=== PATIENT | female | born 1950 | race Caucasian/White ===

== ENCOUNTER 2018-05-12 14:38 | Emergency (ER) | payer MEDICARE, OTHER ==
[~2018-05-12] VITALS: Ht 160 cm; Wt 97.1 kg
[~2018-05-12 14:38] MED LIST: HYDROCHLOROTHIAZIDE; LISINOPRIL-? DOSE; PHENA200 PO; SULTRIDS PO
[2018-05-12 15:38] LABS: BASOPHILS ABSOLUTE AUTO 0.02 K/mm3 (0.00-0.23); BASOPHILS PERCENT AUTO 0 % (0-2); EOSINOPHILS ABSOLUTE AUTO 0.08 K/mm3 (0.00-0.68); EOSINOPHILS PERCENT AUTO 1 % (0-6); Hematocrit 40.7 % (33.0-51.0); Hemoglobin 13.5 g/dL (11.5-16.0); IMMATURE GRAN ABSOLUTE AUTO 0.02 K/mm3 (0.00-0.10); IMMATURE GRAN PERCENT AUTO 0 % (0-1); LYMPHOCYTES ABSOLUTE AUTO 1.72 K/mm3 (0.84-5.20); LYMPHOCYTES PERCENT AUTO 18 % (21-46); MONOCYTES ABSOLUTE AUTO 0.46 K/mm3 (0.16-1.47); MONOCYTES PERCENT AUTO 5 % (4-13); Mean Corpuscular HGB 29.9 pg (26.0-34.0); Mean Corpuscular HGB Conc 33.2 g/dL (31.5-36.5); Mean Corpuscular Volume 90 fL (80-100); Mean Platelet Volume 9.5 fL (9.1-12.4); NEUTROPHILS ABSOLUTE AUTO 7.22 K/mm3 (1.96-9.15); NEUTROPHILS PERCENT AUTO 76 % (41-73); Platelet Count 266 K/mm3 (150-400); RDW Coefficient Variation 12.5 % (11.7-14.2); RDW Standard Deviation 40.9 fL (35.1-46.3); Red Blood Cell Count 4.52 M/mm3 (3.80-5.20); White Blood Cell Count 9.52 K/mm3 (4.00-11.30)
[2018-05-12 15:55] LABS: Anion Gap 9 mmol/L (6-16); Blood Urea Nitrogen 17 mg/dL (8-24); Bun/Creatinine Ratio 23.5 (12.0-20.0); CO2, Blood 25 mmol/L (21-32); Calcium, Blood 9.2 mg/dL (8.5-10.1); Chloride, Blood 105 mmol/L (98-108); Creatinine, Blood 0.72 mg/dL (0.40-1.00); Glomerular Filtration Rate >60 (60-); Glucose, Blood 95 mg/dL (70-99); Sodium, Blood 139 mmol/L (136-145)
[2018-05-12] MEDS ORDERED: Percocet 5-3251 EACH PO (16:15)
== END 2018-05-12 16:39 | disposition home or self-care (01) ==
LOC: ER 14:38
PROVIDERS: Emergency Medicine
DX: S52.612A Displaced fracture of left ulna styloid process, initial encounter for closed fracture (principal); S52.502A Unspecified fracture of the lower end of left radius, initial encounter for closed fracture; I10 Essential (primary) hypertension; Z79.899 Other long term (current) drug therapy; W01.0XXA Fall on same level from slipping, tripping and stumbling without subsequent striking against object, initial encounter
CPT/HCPCS: 25605; 73100; 80048; 85025; 99152; 99283-25; J7030

== ENCOUNTER 2018-05-19 06:46 | Day surgery (SDC) | payer MEDICARE, OTHER ==
[~2018-05-19] VITALS: Ht 160 cm; Wt 95.7 kg
[~2018-05-19 06:46] MED LIST changes: +Percocet 5-3251 EACH PO
[2018-05-19] MEDS ORDERED: PRAV20 PO (07:48)
[2018-05-19] MEDS ORDERED: ZESTORETIC 20-121 EA (07:48)
== END 2018-05-19 11:10 | disposition home or self-care (01) ==
LOC: ORSCSDS 06:46
PROVIDERS: Orthopaedic Surgery
PROC: 0PSJ04Z Reposition Left Radius with Internal Fixation Device, Open Approach (ICD-10-PCS; principal; 2018-05-19 08:00)
DX: S52.502A Unspecified fracture of the lower end of left radius, initial encounter for closed fracture (principal); S52.602A Unspecified fracture of lower end of left ulna, initial encounter for closed fracture; I10 Essential (primary) hypertension; E66.01 Morbid (severe) obesity due to excess calories; Z68.36 Body mass index [BMI] 36.0-36.9, adult; Z79.899 Other long term (current) drug therapy
CPT/HCPCS: C1713; J0690; J2250; J2370; J2795; J3010; J7120

== ENCOUNTER → 2019-09-21 | Outpatient (CLI) | payer MEDICARE, OTHER ==
[~2019-09-21] MED LIST changes: +PRAV20 PO; +ZESTORETIC 20-121 EA
== END ==
LOC: LAB SHORT 17:53 → LAB 17:53
DX: R50.9 Fever, unspecified (principal); R35.0 Frequency of micturition
CPT/HCPCS: 87077; 87086; 87186

== ENCOUNTER 2021-12-11 11:40 | Day surgery (SDC) | payer MEDICARE, OTHER ==
[~2021-12-11] VITALS: Ht 162.6 cm; Wt 94.7 kg
[~2021-12-11 11:40] MED LIST changes: +MOBIC15 MG PO; +SERT25 PO
== END 2021-12-11 14:04 | disposition home or self-care (01) ==
LOC: ORSCSDS 11:40
PROVIDERS: Surgery
PROC: 0DJD8ZZ Inspection of Lower Intestinal Tract, Via Natural or Artificial Opening Endoscopic (ICD-10-PCS; principal; 2021-12-11 13:00)
DX: Z12.11 Encounter for screening for malignant neoplasm of colon (principal); K57.30 Diverticulosis of large intestine without perforation or abscess without bleeding; K64.8 Other hemorrhoids; I10 Essential (primary) hypertension; E78.5 Hyperlipidemia, unspecified; E66.9 Obesity, unspecified; Z68.37 Body mass index [BMI] 37.0-37.9, adult; Z79.899 Other long term (current) drug therapy
CPT/HCPCS: J0330; J0461; J2405; J2704; J7120

== ENCOUNTER → 2022-02-21 | Outpatient (CLI) | payer MEDICARE, OTHER | END | disposition home or self-care (01) | LOC: LAB SHORT 09:00 → LAB 09:00 | DX: L01.09 Other impetigo (principal) | CPT/HCPCS: 87070; 87205 ==

== ENCOUNTER 2025-01-18 08:54 | Day surgery (SDC) | payer MEDICARE, OTHER ==
[~2025-01-18] VITALS: Ht 160 cm; Wt 79.5 kg
[2025-01-18] VITALS (15 sets, daily range): BP systolic 78–118; BP diastolic 48–69
[~2025-01-18 08:54] MED LIST changes: +C COMPLEX1000 M1 PO; +ELDERBERRY350 MG PO; +FISH OIL PO; +MAGCHL64ER PO; +MOUNJARO2.5 MG/0.5 SC; +POLY500 PO; +TRAM50 PO; +Vitamin D1000 UNI1 PO; -ZESTORETIC 20-121 EA; +ZESTORETIC 20-121 EA PO
[2025-01-18] MEDS ORDERED: Lactated Ringer's 1,000 ML IV SCH ×2 (09:10→10:05)
[2025-01-18] MEDS ORDERED: Chlorhexidine Mouth Care 15 ML UDC MT SCH (09:10)
[2025-01-18] MEDS ORDERED: CeFAZolin Sodium 2,000 MG in NS 100 ML IV SCH ×2 (09:10→19:00)
[2025-01-18] MEDS ORDERED: OxyCODONE HCL 10 MG TABCR PO SCH (09:10)
[2025-01-18] MEDS ORDERED: Acetaminophen 500 MG Tab PO SCH ×2 (09:10→16:00)
[2025-01-18] MEDS ORDERED: Ropivacaine 0.5% HCl/Pf 123.125 MG,EPINEPHrine HCL 0.25 MG,Ketorolac Tromethamine 15 MG... INFIL SCH (09:10)
[2025-01-18] MEDS ORDERED: Tranexamic Acid 100 ML IV SCH (09:15)
[2025-01-18] MEDS ORDERED: LISI10 PO (09:17)
[2025-01-18] MEDS ORDERED: propofoL 0 ML IV ONE (09:39)
[2025-01-18] MEDS ORDERED: FentaNYL Citrate 50 MCG/ML 2 ML Injection ONE ×2 (09:39→10:24)
[2025-01-18] MEDS ORDERED: HYDROmorphone HCl/Pf 1MG SYR IV PRN ×3 (09:50→12:40)
[2025-01-18] MEDS ORDERED: OxyCODONE HCL 5 MG TAB PO PRN ×2 (09:55)
[2025-01-18] MEDS ORDERED: Bisacodyl 10 MG Supp PR PRN (10:00)
[2025-01-18] MEDS ORDERED: Promethazine HCl 25 MG Tab PO PRN (10:05)
[2025-01-18] MEDS ORDERED: Magnesium Hydroxide Conc 10 ML UDC PO PRN (10:05)
[2025-01-18] MEDS ORDERED: Ondansetron HCl 2 MG / ML 2ML Vial IV PRN ×2 (10:05→12:45)
[2025-01-18] MEDS ORDERED: Metoclopramide HCl 5MG / ML 2ML Vial IV PRN (10:05)
[2025-01-18] MEDS ORDERED: DiphenhydrAMINE HCL 25 MG Cap PO PRN (10:05)
[2025-01-18] MEDS ORDERED: Ondansetron HCl 2 MG / ML 2ML Vial ONE (10:24)
[2025-01-18] MEDS ORDERED: Dexamethasone Sod Phos 10 MG/ML 1ML VIAL ONE (10:24)
[2025-01-18] MEDS ORDERED: Midazolam HCl 1MG / ML 2ML Vial ONE (10:24)
[2025-01-18] MEDS ORDERED: propofoL 60 ML IV ONE (10:24)
[2025-01-18] MEDS ORDERED: Phenylephrine HCl 100 MCG/ML-NS 10MLSYR (1MG/10ML) ONE (11:23)
[2025-01-18] MEDS ORDERED: Ketorolac Tromethamine 15mg Vial IV SCH (12:00)
[2025-01-18] MEDS ORDERED: FentaNYL Citrate 50 MCG/ML 2 ML Injection IV PRN ×2 (12:40→12:45)
[2025-01-18] MEDS ORDERED: ePHEDrine Sulfate 50 MG/ML 1ML Injection IV PRN (12:45)
[2025-01-18] MEDS ORDERED: ePHEDrine Sulfate 50 MG/ML 1ML Injection ONE (13:00)
[2025-01-18] MEDS ORDERED: HYDROmorphone HCl/Pf 1MG SYR ONE (13:16)
[2025-01-18] MEDS ORDERED: Tranexamic Acid 100 ML IV ONE (13:38)
--- NOTE | 2025-01-18 18:35 | NUR ---
SHIFT SUMMARY POD0 L TKA, A/OX4, VSS, TOLERATING PO, PAIN WELL MANAGED THOUGH SHE HAS ONLY REPORTED THIS TO BE A DULL ACHE AT MOST TODAY, WORKED WITH THERAPY BUT WAS UNABLE TO GET OUT OF BED R/T HER SPINAL AND LOW BP. SHE WAS HYPOTENSIVE IN PACU AND CONTINUED TO BE OUT ON THE FLOOR, FLUIDS STARTED WHICH HELPED BRING HER SYSTOLIC UP TO LOW 100'S. NO OTHER EVENTS, CALL LIGHT IN REACH.
[2025-01-18] MEDS ORDERED: Docusate Sodium 100 MG Cap PO SCH (21:00)
[2025-01-18] MEDS ORDERED: Pravastatin Sodium 20 MG Tab PO SCH (21:00)
--- NOTE | 2025-01-18 23:51 | NUR ---
REPORT TAKEN FROM BELKIS WALLACE TO ASSUME CARE OF PT AT THIS TIME. PT RESTING IN BED WITH EYES CLOSED, CHEST RISES AND FALLS. CALL LIGHT WITHIN REACH.
--- NOTE | 2025-01-18 23:59 | NUR ---
REPORT GIVEN TO RASHID ODONNELL RN TO ASSUME CARE OF PT.
[2025-01-19 00:22] VITALS: BP 113/66
[2025-01-19 04:48] LABS: BASOPHILS ABSOLUTE AUTO 0.01 K/mm3 (0.00-0.23); BASOPHILS PERCENT AUTO 0 % (0-2); EOSINOPHILS PERCENT AUTO 0 % (0-6); Hematocrit 31.8 % (33.0-51.0); Hemoglobin 11.1 g/dL (11.5-16.0); IMMATURE GRAN ABSOLUTE AUTO 0.09 K/mm3 (0.00-0.10); IMMATURE GRAN PERCENT AUTO 1 % (0-1); LYMPHOCYTES ABSOLUTE AUTO 1.16 K/mm3 (0.84-5.20); LYMPHOCYTES PERCENT AUTO 7 % (21-46); MONOCYTES ABSOLUTE AUTO 0.69 K/mm3 (0.16-1.47); MONOCYTES PERCENT AUTO 4 % (4-13); Mean Corpuscular HGB Conc 34.9 g/dL (31.5-36.5); Mean Corpuscular Volume 92 fL (80-100); Mean Platelet Volume 9.1 fL (9.1-12.4); NEUTROPHILS ABSOLUTE AUTO 13.77 K/mm3 (1.96-9.15); NEUTROPHILS PERCENT AUTO 88 % (41-73); Platelet Count 260 K/mm3 (150-400); RDW Coefficient Variation 12.4 % (11.7-14.2); RDW Standard Deviation 41.9 fL (35.1-46.3); Red Blood Cell Count 3.47 M/mm3 (3.80-5.20); White Blood Cell Count 15.72 K/mm3 (4.00-11.30)
--- NOTE | 2025-01-19 05:23 | NUR ---
SHIFT SUMMARY PT POD 0 LEFT TOTAL KNEE. THIS RN ASSUMED CARE OF PT FROM BELKIS WALLACE JUST SHORTLY BEFORE MIDNIGHT. PAIN HAS BEEN MANAGED WITH MEDS PER EMAR. PT HAS BEEN UP AND AMBULATING, VOIDING AND TOLERATING PO INTAKE. ANTIBIOTICS INFUSED, SURGICAL SITE WNL. PLAN IS FOR DISCHARGE TODAY. BED IN LOWEST POSITION, CALL LIGHT WITHIN REACH.
[2025-01-19 05:28] LABS: Bun/Creatinine Ratio 24.4 (12.0-20.0); Calcium, Blood 8.7 mg/dL (8.5-10.1); Creatinine, Blood 0.66 mg/dL (0.40-1.00); Potassium, Blood 4.5 mmol/L (3.5-5.5)
[2025-01-19 07:06] VITALS: BP 115/66
[2025-01-19] MEDS ORDERED: ASPI81CH PO (08:13)
[2025-01-19] MEDS ORDERED: Cholecalciferol 400 unit Tab PO SCH (09:00)
[2025-01-19] MEDS ORDERED: Magnesium Oxide 400 MG Tab PO SCH (09:00)
[2025-01-19] MEDS ORDERED: HydroCHLOROthiazide 25 mg Tab PO SCH (09:00)
[2025-01-19] MEDS ORDERED: Calcium Polycarbophil 625 MG Tab PO SCH (09:00)
[2025-01-19] MEDS ORDERED: Lisinopril 10 MG Tab PO SCH (09:00)
[2025-01-19] MEDS ORDERED: Ascorbic Acid 500 MG Tab PO SCH (09:00)
[2025-01-19] MEDS ORDERED: Aspirin 81 MG Chew PO SCH (09:00)
[2025-01-19 09:43] VITALS: BP 128/70
--- NOTE | 2025-01-19 10:20 | NUR ---
discharging REVIEWED DC INSTRUCTIONS W/PT; VERBALIZED UNDERSTANDING. PROVIDED AQUACEL DRESSINGS. IV DC'D. PATIENT PACKED UP AND AWAITING RIDE.
--- NOTE | 2025-01-19 10:23 | NUR ---
DISCHARGED PT LEFT UNIT IN WC W/POSSESSIONS, DC PAPERWORK AND POLAR PACK, ACCOMPANIED BY DAVE.
[2025-01-20] MEDS ORDERED: LISI10 PO (01:36)
[2025-01-22] MEDS ORDERED: MOUNJARO SC SCH (09:00)
== END 2025-01-19 10:20 | disposition home or self-care (01) ==
LOC: ORSCMMR 08:54 → ORD 10:00 → ORSCMMR 13:37 → SURS 13:37 → ORSCMMR 01-19 10:20
PROVIDERS: Orthopaedic Surgery
PROC: 0SRD0JA Replacement of Left Knee Joint with Synthetic Substitute, Uncemented, Open Approach (ICD-10-PCS; principal; 2025-01-18 10:00)
PROC: 8E0Y0CZ Robotic Assisted Procedure of Lower Extremity, Open Approach (ICD-10-PCS; principal; 2025-01-18 10:00)
DX: M17.12 Unilateral primary osteoarthritis, left knee (principal); I10 Essential (primary) hypertension; E78.5 Hyperlipidemia, unspecified; Z79.899 Other long term (current) drug therapy
CPT/HCPCS: 36415; 73560-LT; 80048; 85025; 97110; 97116; 97162; 97530; A9270; C1713; C1776; J0171; J0690; J0735; J1100; J1171; J1885; J2250; J2371; J2405; J2704; J2795; J3010; J7120

== ENCOUNTER 2025-01-19 21:31 | Emergency (ER) | payer MEDICARE, OTHER ==
[~2025-01-19] VITALS: Ht 160 cm; Wt 77.1 kg
[~2025-01-19 21:31] MED LIST changes: +ASPI81CH PO; +LISI10 PO
[2025-01-19] MEDS ORDERED: Ondansetron HCl 2 MG / ML 2ML Vial IV ONE (21:40)
[2025-01-19 22:43] LABS: Albumin, Blood 2.8 g/dL (3.4-5.0); Albumin/Globulin Ratio 0.9 (0.8-1.8); Bilirubin, Total 0.4 mg/dL (0.1-1.0); Bun/Creatinine Ratio 28.4 (12.0-20.0); Calcium, Blood 8.6 mg/dL (8.5-10.1); Creatinine, Blood 0.63 mg/dL (0.40-1.00); Globulin, Blood 3.1 g/dL (2.2-4.0); Potassium, Blood 4.6 mmol/L (3.5-5.5); Total Protein, Blood 5.9 g/dL (6.4-8.2)
[2025-01-19 23:10] LABS: BASOPHILS ABSOLUTE AUTO 0.02 K/mm3 (0.00-0.23); BASOPHILS PERCENT AUTO 0 % (0-2); EOSINOPHILS ABSOLUTE AUTO 0.03 K/mm3 (0.00-0.68); EOSINOPHILS PERCENT AUTO 0 % (0-6); Hematocrit 34.6 % (33.0-51.0); Hemoglobin 11.6 g/dL (11.5-16.0); IMMATURE GRAN ABSOLUTE AUTO 0.08 K/mm3 (0.00-0.10); IMMATURE GRAN PERCENT AUTO 1 % (0-1); LYMPHOCYTES ABSOLUTE AUTO 2.16 K/mm3 (0.84-5.20); LYMPHOCYTES PERCENT AUTO 15 % (21-46); MONOCYTES PERCENT AUTO 7 % (4-13); Mean Corpuscular HGB 31.5 pg (26.0-34.0); Mean Corpuscular HGB Conc 33.5 g/dL (31.5-36.5); Mean Corpuscular Volume 94 fL (80-100); Mean Platelet Volume 9.3 fL (9.1-12.4); NEUTROPHILS ABSOLUTE AUTO 11.22 K/mm3 (1.96-9.15); NEUTROPHILS PERCENT AUTO 77 % (41-73); Platelet Count 243 K/mm3 (150-400); RDW Coefficient Variation 12.6 % (11.7-14.2); RDW Standard Deviation 43.6 fL (35.1-46.3); Red Blood Cell Count 3.68 M/mm3 (3.80-5.20); White Blood Cell Count 14.51 K/mm3 (4.00-11.30)
[2025-01-19 23:52] LABS: Magnesium, Blood 1.7 mg/dL (1.6-2.4); Phosphorus, Blood 3.3 mg/dL (2.5-4.9)
[2025-01-20 00:12] LABS: Source, Urine Clean Catch
[2025-01-20 00:35] LABS: Bilirubin, Urine Neg (Neg); Blood, Urine Neg (Neg); Glucose Qualitative, Urine Neg (Neg); Ketones, Urine Neg (Neg); Leukocyte Esterase, Urine Neg (Neg); Nitrite, Urine Neg (Neg); Protein, Urine Neg (Neg); Specific Gravity, Urine 1.015 (1.003-1.022); Urobilinogen, Urine NORM (Normal)
[2025-01-20 00:47] LABS: Appearance, Urine Clear (Clear); Color, Urine Yellow (P-Yellow)
[2025-01-20] MEDS ORDERED: Ondansetron HCl 2 MG / ML 2ML Vial IV ONE (00:55)
[2025-01-20 01:15] VITALS: BP 110/54
[2025-01-20] MEDS ORDERED: LISI10 PO (01:36)
== END 2025-01-20 01:45 | disposition home or self-care (01) ==
LOC: ER 21:31
PROVIDERS: Emergency Medicine; Student in an Organized Health Care Education/Training Program
DX: R55 Syncope and collapse (principal); D72.829 Elevated white blood cell count, unspecified; Z59.89 Other problems related to housing and economic circumstances; I10 Essential (primary) hypertension; Z79.899 Other long term (current) drug therapy; Z79.890 Hormone replacement therapy; Z79.51 Long term (current) use of inhaled steroids; Z79.52 Long term (current) use of systemic steroids; Z79.83 Long term (current) use of bisphosphonates; Z79.1 Long term (current) use of non-steroidal anti-inflammatories (NSAID); Z79.02 Long term (current) use of antithrombotics/antiplatelets
CPT/HCPCS: 80053; 81003; 83735; 84100; 85025; 93005; 93010; 96374; 96376; 99284-25; J2405

== ENCOUNTER 2025-05-03 08:49 | Day surgery (SDC) | payer MEDICARE, OTHER ==
[2025-04-12 14:21] VITALS: BP 132/84
[~2025-05-03] VITALS: Ht 160 cm; Wt 81.4 kg
[2025-05-03] VITALS (14 sets, daily range): BP systolic 125–151; BP diastolic 58–79
[~2025-05-03 08:49] MED LIST changes: +FISH OIL 1,0001 EA10 PO; +MUPIROCIN1 G1
[2025-05-03] MEDS ORDERED: CeFAZolin Sodium 2,000 MG in NS 100 ML IV SCH ×2 (09:10→20:00)
[2025-05-03] MEDS ORDERED: Ropivacaine 0.5% HCl/Pf 123.125 MG,EPINEPHrine HCL 0.25 MG,Ketorolac Tromethamine 15 MG... INFIL SCH (09:10)
[2025-05-03] MEDS ORDERED: Chlorhexidine Mouth Care 15 ML UDC MT SCH (09:10)
[2025-05-03] MEDS ORDERED: Tranexamic Acid 100 ML IV SCH (09:10)
--- NOTE | 2025-05-03 10:30 | NUR ---
Ambulatory in Day Surgery WITH STEADY GAIT. History, Chart, Medications and Allergies reviewed before start of procedure. Pre-Op teaching done. Pt verbalizes understanding. Patient States Post-Procedure ride home has been arranged WITH SISTER. STERLING PERERA AND ANESTHESIA PROVIDER NOTIFIED OF PT REPORTING TAKING BABY ASA AND MELOICAM DAILY, OKAY TO PROCEDE PER BOTH. PT CELL PHONE GIVEN TO SISTER IN PRE OP AREA. GLASSES TAKEN TO PACU WITH PT BLUE LINE OPERATOR BAG. ALL OTHER BELONGINGS PLACED UNDER GURN IN PT BELONGING BAG. JYB ATTEMPTED IV IN R HAND AND LFA. BOTH VEINS BLEW. ERF ATTEMPTED IN LFA. VEIN BLEW. 4TH ATTEMPT IN SHARON BY ERF SUCCESFUL.
[2025-05-03] MEDS ORDERED: Ondansetron HCl 2 MG / ML 2ML Vial IV PRN (10:55)
[2025-05-03] MEDS ORDERED: Magnesium Hydroxide Conc 10 ML UDC PO PRN (11:05)
[2025-05-03] MEDS ORDERED: Metoclopramide HCl 5MG / ML 2ML Vial IV PRN (11:05)
[2025-05-03] MEDS ORDERED: HYDROmorphone HCl/Pf 1MG SYR IV PRN ×2 (11:05→12:20)
[2025-05-03] MEDS ORDERED: FentaNYL Citrate 50 MCG/ML 2 ML Injection ONE (11:28)
[2025-05-03] MEDS ORDERED: Rocuronium Bromide 10 MG/ML 5ML Injection IV ONE (11:51)
[2025-05-03] MEDS ORDERED: Dexamethasone Sod Phos 10 MG/ML 1ML VIAL ONE (12:03)
[2025-05-03] MEDS ORDERED: Ketorolac Tromethamine 30mg Vial ONE (12:03)
[2025-05-03] MEDS ORDERED: Ondansetron HCl 2 MG / ML 2ML Vial ONE (12:03)
[2025-05-03] MEDS ORDERED: FentaNYL Citrate 50 MCG/ML 2 ML Injection IV PRN (12:20)
[2025-05-03] MEDS ORDERED: Prochlorperazine Edisylate 10 mg Vial IV PRN (12:20)
[2025-05-03] MEDS ORDERED: Albuterol 2.5 MG/3 ML VIAL INH PRN (12:20)
[2025-05-03] MEDS ORDERED: HYDROmorphone HCl/Pf 1MG SYR ONE (12:41)
[2025-05-03] MEDS ORDERED: Sugammadex Sodium 200 MG/2ML SDV (100 MG/ML) ONE (13:12)
--- NOTE | 2025-05-03 14:37 | NUR ---
POST OP ARRIVAL TO SURGICAL UNIT VIA HOSPITAL BED. DROWSY BUT OPENS EYES WHEN ASKED TO & SOFTLY ANSWERS ?s. DENIES PAIN. ASSESSMENT CHARTED. DENIES N/V SO SNACKS & DRINKS AT BEDSIDE. WILL WEAN O2 APPROP. CRYOTHERAPY IN PLACE.
[2025-05-03] MEDS ORDERED: Ketorolac Tromethamine 15mg Vial IV SCH (18:00)
--- NOTE | 2025-05-03 19:48 | NUR ---
SHIFT SUMMARY HAS STRUGGLED w/ NAUSEA, DROWSINESS, & GENERAL UNWELL FEELING POST OP. IVF HAVE BEEN CONTINUED & WAS MEDICATED, COOL WASHCLOTH GIVEN, & ALLOWED TO REST. HAS NOT BEEN OOB OR VOIDED AT THIS POINT. ONLY SIPS HAVE BEEN TAKEN.
[2025-05-04 00:25] VITALS: BP 119/61
[2025-05-04 04:32] VITALS: BP 119/63
[2025-05-04 05:37] LABS: BASOPHILS ABSOLUTE AUTO 0.01 K/mm3 (0.00-0.23); BASOPHILS PERCENT AUTO 0 % (0-2); EOSINOPHILS ABSOLUTE AUTO 0.00 K/mm3 (0.00-0.68); EOSINOPHILS PERCENT AUTO 0 % (0-6); Hematocrit 32.5 % (33.0-51.0); Hemoglobin 11.0 g/dL (11.5-16.0); IMMATURE GRAN ABSOLUTE AUTO 0.05 K/mm3 (0.00-0.10); IMMATURE GRAN PERCENT AUTO 0 % (0-1); LYMPHOCYTES ABSOLUTE AUTO 0.95 K/mm3 (0.84-5.20); LYMPHOCYTES PERCENT AUTO 7 % (21-46); MONOCYTES ABSOLUTE AUTO 0.60 K/mm3 (0.16-1.47); MONOCYTES PERCENT AUTO 5 % (4-13); Mean Corpuscular HGB Conc 33.8 g/dL (31.5-36.5); Mean Corpuscular Volume 91 fL (80-100); NEUTROPHILS ABSOLUTE AUTO 11.56 K/mm3 (1.96-9.15); NEUTROPHILS PERCENT AUTO 88 % (41-73); NRBC ABSOLUTE 0.00 K/mm3 (0.00-0.02); NRBC Auto 0.0 /100 WBC (0.0-0.2); Platelet Count 252 K/mm3 (150-400); RDW Coefficient Variation 12.8 % (11.7-14.2); RDW Standard Deviation 42.6 fL (35.1-46.3)
[2025-05-04 06:00] LABS: Anion Gap 8.0 mmol/L (3-11); Blood Urea Nitrogen 19.0 mg/dL (8-24); CO2, Blood 25.0 mmol/L (21-32); Calcium, Blood 8.5 mg/dL (8.5-10.1); Chloride, Blood 105.0 mmol/L (98-108); Creatinine, Blood 0.65 mg/dL (0.40-1.00); Glucose, Blood 127.0 mg/dL (70-99); Potassium, Blood 4.1 mmol/L (3.5-5.5); Sodium, Blood 134.0 mmol/L (136-145)
--- NOTE | 2025-05-04 06:17 | NUR ---
SHIFT SUMMARY NOC. PT POD 1 FOR RIGHT TOTAL KNEE. DRESSING IS C/D/I WITH POLAR PACK AND SCDS. PT A/O X4. PT WAS NAUSEOUS DURING SHIFT AND REPORTED RELIEF WITH MEDICATION. NO VOMIT EPISODES, TOLERATING SIPS OF CLEARS. PT PAIN CONTROLLED WITH SCHEDULED TYLENOL AND TORADOL. PT MAKES NEEDS KNOWN, CALL LIGHT IN REACH.
[2025-05-04 07:29] VITALS: BP 141/64
--- NOTE | 2025-05-04 10:26 | NUR ---
DISCHARGE PATIENT WORKS WITH THERAPY, VOIDING, TOLERATING PO INTAKE. DENIES N/T, N/V. ALL INSTRUCTIONS READ AND SIGNED. IV TAKEN OUT INTACT. PAIN IS MANAGED WELL. ICE MACHINE PACKED UP AND PATIENT LEAVES TO PRIVATE CAR. VSS.
== END 2025-05-04 10:17 | disposition home or self-care (01) ==
LOC: ORSCMMR 08:49 → ORD 10:00 → SURS 14:18 → ORSCMMR 05-04 10:17
PROVIDERS: Orthopaedic Surgery
PROC: 0SRC0JA Replacement of Right Knee Joint with Synthetic Substitute, Uncemented, Open Approach (ICD-10-PCS; principal; 2025-05-03 10:00)
DX: M17.11 Unilateral primary osteoarthritis, right knee (principal); I10 Essential (primary) hypertension; Z79.899 Other long term (current) drug therapy; Z96.652 Presence of left artificial knee joint
CPT/HCPCS: 36415; 73560-RT; 80048; 85025; 97110; 97116; 97161; 97530; A9270; C1713; C1776; J0165; J0690; J0735; J1100; J1171; J1885; J2405; J2704; J2795; J3010; J3373; J7050; J7120